=== PATIENT | male | born 1950 | race Caucasian/White ===

== ENCOUNTER 2022-11-24 19:31 | Emergency (ER) | payer BC, MEDICARE ==
[2022-11-24 20:35] VITALS: TEMP 98.3
[2022-11-24 20:49] LABS: HCT 45.1 % (39.0-53.0); HGB 15.4 gm/dL (13.0-17.5); MCHC 34.1 g/dL (31.0-37.0); MCV 88.2 fL (80.0-100.0); Mean Platelet Volume 12.2; Platelet Count 179 k/uL (150-450); RBC 5.12 m/uL (4.30-5.90); RDW 13.1 % (11.5-15.5); WBC 9.9 k/uL (3.8-10.6)
[2022-11-24 21:06] LABS: ALT 25 U/L (4-49); AST 26 U/L (17-59); African American GFR (CKD) >90 (>60 ml/min/1.73 sqM); Albumin 3.9 g/dL (3.5-5.0); Alkaline Phosphatase 54 U/L (38-126); Anion Gap 8 mmol/L; Blood Urea Nitrogen 25 mg/dL (9-20); Calcium 9.4 mg/dL (8.4-10.2); Carbon Dioxide 26 mmol/L (22-30); Chloride 104 mmol/L (98-107); Glucose 227 mg/dL (74-99); Non-African American GFR(CKD) 87 (>60 ml/min/1.73 sqM); Potassium 3.7 mmol/L (3.5-5.1); Sodium 138 mmol/L (137-145); Total Bilirubin 0.7 mg/dL (0.2-1.3); Total Protein 6.8 g/dL (6.3-8.2)
--- NOTE | 2022-11-24 21:19 | ED ---
Abdominal Pain HPI - General Source: patient Mode of arrival: ambulatory Limitations: no limitations <Migdalia Roca - Last Filed: 11/24/22 21:19> <Mag Bey - Last Filed: 11/28/22 23:14> - General Chief Complaint: Abdominal Pain Stated Complaint: Abd Pain Time Seen by Provider: 11/24/22 21:19 - History of Present Illness Initial Comments: 72-year-old male presenting with chief complaint of left lower quadrant pain. Pain started 3 days ago. No nausea, vomiting, diarrhea, dysuria, hematuria. (Migdalia Roca) 72-year-old male with past medical history of diabetes who presents emergency department with left lower quadrant abdominal pain. States has been going on for the past 3 days. Pain is worse with palpation to the area. No fevers. Denies diarrhea, constipation, black or bloody stools. No nausea or vomiting. No changes in his urination. No history of similar pain in the past. Does admit normal colonoscopies in the past. No other alleviating, precipitating or modifying factors (Mag Bey) - Related Data Previous Rx's Medication Instructions Recorded Amoxic-Pot Clav 875-125Mg 1 tab PO BID #20 tab 11/25/22 [Augmentin 875-125] HYDROcodone/APAP 5-325MG [Baggs 1 tab PO Q6HR PRN 3 Days #12 tab 11/25/22 5-325] Allergies Allergy/AdvReac Type Severity Reaction Status Date / Time No Known Allergies Allergy Verified 11/24/22 20:35 Review of Systems ROS Other: All systems not noted in ROS Statement are negative. <Migdalia Roca - Last Filed: 11/24/22 21:19> ROS Other: All systems not noted in ROS Statement are negative. <Mag Bey - Last Filed: 11/28/22 23:14> ROS Statement: Those systems with pertinent positive or pertinent negative responses have been documented in the HPI. 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 Absent: scleral icterus, conjunctival injection, periorbital swelling ENT exam: Present: normal exam, mucous membranes moist Neck exam: Present: normal inspection. Absent: tenderness, meningismus, lymphadenopathy Respiratory exam: Present: normal lung sounds bilaterally. Absent: respiratory distress, wheezes, rales, rhonchi, stridor Cardiovascular Exam: Present: regular rate, normal rhythm, normal heart sounds. Absent: systolic murmur, diastolic murmur, rubs, gallop, clicks GI/Abdominal exam: Present: soft, tenderness (llq), normal bowel sounds. Absent: distended, guarding, rebound, rigid Extremities exam: Present: normal inspection, full ROM, normal capillary refill. Absent: tenderness, pedal edema, joint swelling, calf tenderness Back exam: Present: normal inspection Neurological exam: Present: alert, oriented X3, CN II-XII intact Psychiatric exam: Present: normal affect, normal mood Skin exam: Present: warm, dry, intact, normal color. Absent: rash <Mag Bey - Last Filed: 11/28/22 23:14> - General Exam Comments Initial Comments: Visual Physical Exam Vital signs reviewed General: Well-appearing, nontoxic, no acute distress. Head: Normocephalic, atraumatic Eyes: PERRLA, EOMI ENT: Airway patent Chest: Nonlabored breathing Skin: No visual rash, normal skin tone Neuro: Alert and oriented 3 Musculoskeletal: No gross abnormalities (Migdalia Roca) Course Vital Signs 11/24/22 11/25/22 20:31 00:48 Temperature 98.3 F Pulse Rate 63 60 Respiratory 18 16 Rate Blood Pressure 170/86 145/68 O2 Sat by Pulse 95 96 Oximetry Medical Decision Making - Lab Data Result diagrams: 11/24/22 20:36 11/24/22 20:36 <Migdalia Roca - Last Filed: 11/24/22 21:19> - Lab Data Result diagrams: 11/24/22 20:36 11/24/22 20:36 <Mag Bey - Last Filed: 11/28/22 23:14> - Medical Decision Making Was pt. sent in by a medical professional or institution ([facility], [facility], urgent care, hospital, or fdc...) When possible be specific @ -No Did you speak to anyone other than the patient for history (EMS, parent, family, police, friend...)? What history was obtained from this source @ -No Did you review nursing and triage notes (agree or disagree)? Why? @ -I reviewed and agree with nursing and triage notes Were old charts reviewed (outside hosp., previous admission, EMS record, old EKG, old radiological studies, urgent care reports/EKG's, fdc records)? Report findings @ -No old charts were reviewed Differential Diagnosis (chest pain, altered mental status, abdominal pain women, abdominal pain men, vaginal bleeding, weakness, fever, dyspnea, syncope, headache, dizziness, GI bleed, back pain, seizure, CVA, palpatations, mental health, musculoskeletal)? @ -constipation, diverticulitis, bowel perforation, colitis, gastroenteritis EKG interpreted by me (3pts min.). @ -not done X-rays interpreted by me (1pt min.). @ -not done CT interpreted by me (1pt min.). @ -yes, diverticulitis U/S interpreted by me (1pt. min.). @ -no What testing was considered but not performed or refused? (CT, X-rays, U/S, labs)? Why? @ -None What meds were considered but not given or refused? Why? @ -None Did you discuss the management of the patient with other professionals (professionals i.e. [facility], [employer], lab, RT, psych nurse, social work instructor, laboratory supervisor, teacher, security officer supervisor, case management coordinator)? Give summary @ -no Was smoking cessation discussed for >3mins.? @ -No Was critical care preformed (if so, how long)? @ -No Were there social determinants of health that impacted care today? How? (Homelessness, low income, unemployed, alcoholism, drug addiction, transportation, low edu. Level, literacy, decrease access to med. care, intermediate, rehab)? @ -No Was there de-escalation of care discussed even if they declined (Discuss DNR or withdrawal of care, Hospice)? DNR status @ -No What co-morbidities impacted this encounter? (DM, HTN, Smoking, COPD, CAD, Cancer, CVA, ARF, Chemo, Hep., AIDS, mental health diagnosis, sleep apnea, morbid obesity)? @ -none Was patient admitted / discharged? Hospital course, mention meds given and route, prescriptions, significant lab abnormalities, going to OR and other pertinent info. @ -Upon arrival patient was placed into room 12. Thorough history and physical exam is performed. IV is established. Patient was given a Baggs for pain control. Laboratory studies are conducted. CT demonstrates mild acute diverti culitis. Patient started on Augmentin. Will be discharged home on Baggs and Augmentin. Take the medications as directed and follow-up with his doctor. He does have an appointment next week. He will need a colonoscopy in 2-3 months. Return for any new or worsening symptoms. Patient agreeable plan and was discharged in stable condition Undiagnosed new problem with uncertain prognosis? @ -Yes Drug Therapy requiring intensive monitoring for toxicity (Heparin, Nitro, Insulin, Cardizem)? @ -No Were any procedures done? @ -No Diagnosis/symptom? @ -acute llq abd pain, acute diverticulitis Acute, or Chronic, or Acute on Chronic? @ -acute Uncomplicated (without systemic symptoms) or Complicated (systemic symptoms)? @ -uncomplicated Side effects of treatment? @ -allergic reaction, sedation Exacerbation, Progression, or Severe Exacerbation? @ -No Poses a threat to life or bodily function? How? (Chest pain, [place], [place], pneumonia, PE, COPD, DKA, ARF, appy, cholecystitis, CVA, Diverticulitis, Homicidal, Suicidal, threat to staff... and all critical care pts) @ -no (Mag Bey) - Lab Data Lab Results 11/24/22 11/24/22 11/24/22 Range/Units 20:36 20:36 20:40 WBC 9.9 (3.8-10.6) k/uL RBC 5.12 (4.30-5.90) m/uL Hgb 15.4 (13.0-17.5) gm/dL Hct 45.1 (39.0-53.0) % MCV 88.2 (80.0-100.0) fL MCH 30.0 (25.0-35.0) pg MCHC 34.1 (31.0-37.0) g/dL RDW 13.1 (11.5-15.5) % Plt Count 179 (150-450) k/uL MPV 12.2 Neutrophils % Not Reportable Neutrophils % (Manual) 72 % Lymphocytes % Not Reportable Lymphocytes % (Manual) 27 % Monocytes % Not Reportable Monocytes % (Manual) 1 % Eosinophils % Not Reportable Basophils % Not Reportable Neutrophils # Not Reportable Neutrophils # (Manual) 7.13 (1.3-7.7) k/uL Lymphocytes # Not Reportable Lymphocytes # (Manual) 2.67 (1.0-4.8) k/uL Monocytes # Not Reportable Monocytes # (Manual) 0.10 (0-1.0) k/uL Eosinophils # Not Reportable Basophils # Not Reportable Nucleated RBCs 0 (0-0) /100 WBC Manual Slide Review Performed Sodium 138 (137-145) mmol/L Potassium 3.7 (3.5-5.1) mmol/L Chloride 104 (98-107) mmol/L Carbon Dioxide 26 (22-30) mmol/L Anion Gap 8 mmol/L BUN 25 H (9-20) mg/dL Creatinine 0.85 (0.66-1.25) mg/dL Est GFR (CKD-EPI)AfAm >90 (>60 ml/min/1.73 sqM) Est GFR (CKD-EPI)NonAf 87 (>60 ml/min/1.73 sqM) Glucose 227 H (74-99) mg/dL Calcium 9.4 (8.4-10.2) mg/dL Total Bilirubin 0.7 (0.2-1.3) mg/dL AST 26 (17-59) U/L ALT 25 (4-49) U/L Alkaline Phosphatase 54 (38-126) U/L Total Protein 6.8 (6.3-8.2) g/dL Albumin 3.9 (3.5-5.0) g/dL Urine Color Yellow Urine Appearance Clear (Clear) Urine pH 5.0 (5.0-8.0) Ur Specific [place] 1.021 (1.001-1.035) Urine Protein Negative (Negative) Urine Glucose (UA) Negative (Negative) Urine Ketones Negative (Negative) Urine Blood Negative (Negative) Urine Nitrite Negative (Negative) Urine Bilirubin Negative (Negative) Urine Urobilinogen <2.0 (<2.0) mg/dL Ur Leukocyte Esterase Negative (Negative) Disposition <Migdalia Roca - Last Filed: 11/24/22 21:19> Is patient prescribed a controlled substance at d/c from ED?: Yes When asked, does pt state using other controlled substances?: No If prescribed controlled substance>3 days was MAPS reviewed?: Prescribed <3 Days If opioid is for acute pain is fill amount 7 days or less?: Yes If Rx opioid, was Start Talking consent form obtained?: No Time of Disposition: 00:37 <Mag Bey - Last Filed: 11/28/22 23:14> Clinical Impression: Abdominal pain, Diverticulitis Disposition: HOME SELF-CARE Condition: Stable Instructions (If sedation given, give patient instructions): Diverticulitis (ED) Additional Instructions: Take the antibiotic as directed. You may alternate taking Motrin and Tylenol every 4 hours for any pain. If you have moderate pain, you can take a Baggs (this has Tylenol in it so do not take any extra Tylenol). Follow-up with your doctor. you may need a colonoscopy in 2-3 months. Return for any new or worsening symptoms Prescriptions: Amoxic-Pot Clav 875-125Mg [Augmentin 875-125] 1 tab PO BID #20 tab HYDROcodone/APAP 5-325MG [Baggs 5-325] 1 tab PO Q6HR PRN 3 Days #12 tab PRN Reason: Pain Referrals: Stevenson Cash MD [Primary Care Provider] - 1-2 days
[2022-11-24 21:22] LABS: Appearance,Urine Clear (Clear); Bilirubin,Urine Negative (Negative); Blood,Urine Negative (Negative); Color,Urine Yellow; Glucose,Urine (UA) Negative (Negative); Ketones,Urine Negative (Negative); Leukocyte Esterase,Urine Negative (Negative); Nitrite,Urine Negative (Negative); Protein,Urine Negative (Negative); Specific Gravity,Urine 1.021 (1.001-1.035); Urobilinogen,Urine <2.0 mg/dL (<2.0)
[2022-11-24 22:07] LABS: Lymphocytes # (M) 2.67 k/uL (1.0-4.8); Neutrophils # (M) 7.13 k/uL (1.3-7.7); Neutrophils % (M) 72 %; Nucleated Red Blood Cells 0 /100 WBC (0-0); Total Cells Counted 100
[2022-11-24] MEDS ORDERED: HYDROcodone/APAP 5-325MG 1 EACH TAB PO STA (23:24)
--- NOTE | 2022-11-25 00:10 | CT ---
EXAM: CT Abdomen and Pelvis With Intravenous Contrast CLINICAL HISTORY: ITS.REASON CT Reason: LLQ pain TECHNIQUE: Axial computed tomography images of the abdomen and pelvis with intravenous contrast. CTDI is 38.9 mGy and DLP is 2036.2 mGy-cm. This CT exam was performed using one or more of the following dose reduction techniques: automated exposure control, adjustment of the mA and/or kV according to patient size, and/or use of iterative reconstruction technique. COMPARISON: No relevant prior studies available. FINDINGS: Lung bases: Unremarkable. No mass. No consolidation. ABDOMEN: Liver: Unremarkable. No mass. Gallbladder and bile ducts: Unremarkable. No calcified stones. No ductal dilation. Pancreas: Pancreatic calcifications suggesting chronic pancreatitis. No evidence of acute pancreatitis. No ductal dilation. Spleen: Unremarkable. No splenomegaly. Adrenals: Unremarkable. No mass. Kidneys and ureters: Symmetric renal enhancement. No hydronephrosis. Simple right kidney cortical cyst measuring 20 mm; no further follow-up required. Stomach and bowel: Diverticulosis. Uncomplicated acute diverticulitis of the mid sigmoid colon. No bowel obstruction. PELVIS: Appendix: Normal appendix. Bladder: Unremarkable. Normal urinary bladder. Reproductive: Prostatomegaly. ABDOMEN and PELVIS: Intraperitoneal space: Unremarkable. No free air, significant free fluid, or abscess. Bones/joints: No acute fracture or dislocation. Soft tissues: Unremarkable. Vasculature: Aortoiliac atherosclerosis without aneurysm. Lymph nodes: Unremarkable. No adenopathy. IMPRESSION: 1. Uncomplicated acute diverticulitis of the mid sigmoid colon. No free air or abscess.
[2022-11-25] MEDS ORDERED: AMOXIC-POT CLAV 875-125MG 1 EACH TAB PO STA (00:31)
[2022-11-25 01:04] VITALS: BP 145/68; PULSE 60; RESP 16
== END 2022-11-25 00:48 | disposition home or self-care (01) ==
LOC: EC 19:31
DX: K57.32 Diverticulitis of large intestine without perforation or abscess without bleeding (principal); E11.40 Type 2 diabetes mellitus with diabetic neuropathy, unspecified
CPT/HCPCS: 36415; 80053; 85025; 81003; 74177; 99284; Q9967